=== PATIENT | female | born 1985 | race Two or more races ===

== ENCOUNTER 2023-03-06 11:37 | Emergency (ER) | payer OTHER ==
[~2023-03-06] VITALS: Ht 170.2 cm; Wt 101.6 kg
[2023-03-06] MEDS ORDERED: PROAIR RESPICL90 MCG (12:16)
== END 2023-03-06 14:03 | disposition home or self-care (01) ==
LOC: ER 11:37
DX: M25.562 Pain in left knee (principal); Z91.041 Radiographic dye allergy status

== ENCOUNTER 2023-08-19 10:46 | Emergency (ER) | payer OTHER ==
[~2023-08-19] VITALS: Ht 170.2 cm; Wt 90.7 kg
[~2023-08-19 10:46] MED LIST: PROAIR RESPICL90 MCG
[2023-08-19 15:32] LABS: HEMATOCRIT 38.4 % (36.0-45.00); MEAN CELL VOLUME 87.7 fL (80.00-100.00); MEAN CORPUSCULAR HEMOGLOBIN 29.7 pg (27.00-32.0); MEAN CORPUSCULAR HGB CONC 33.9 g/dl (32.0-36.0); PLATELET COUNT 418 K/uL (150-450); RED BLOOD COUNT 4.38 M/uL (4.00-6.00); RED CELL DISTRIBUTION WIDTH 13.8 % (11.5-14.5)
== END 2023-08-19 16:39 ==
LOC: ER 10:47
PROVIDERS: General Practice
DX: B34.9 Viral infection, unspecified (principal); R05.9 Cough, unspecified; Z20.822 Contact with and (suspected) exposure to COVID-19; I10 Essential (primary) hypertension; Z91.041 Radiographic dye allergy status